=== PATIENT | male | born 1925 | race Hispanic/Latino ===

== ENCOUNTER 2017-03-19 18:41 | Emergency (ER) | payer MEDICARE, BC ==
[2017-03-19 18:52] VITALS: TEMP 97.9; BMI 29.2
--- NOTE | 2017-03-19 19:53 | ED PDOC ---
Arrival/HPI - General Chief Complaint: Lower Extremity Problem/Injury Time Seen by Provider: 03/19/17 18:52 Historian: Patient - History of Present Illness Narrative History of Present Illness (Text): 03/19/17 19:44 89yo male with history of hypertension, Asthma, Colon CA present to ED with complaint of intermittent right sided lower back pain that radiates to the lower leg since yesterday. states pain is worse when he sleeps or with prolonged sitting. He did not take any medication for the pain. He denies trauma , exertion, ripping/tearing upper back pain, abdominal pain, focal weakness, urinary/fecal incontinence, any other complaint. Past Medical History - Provider Review Nursing Documentation Reviewed: Yes - Cardiac Hx Pacemaker: No - Neurological Hx Paralysis: No - Hematological/Oncological Hx Blood Transfusions: No Hx Blood Transfusion Reaction: No - Musculoskeletal/Rheumatological Hx Musculoskeletal Disorders: No - Psychiatric Hx Emotional Abuse: No Hx Physical Abuse: No Hx Substance Use: No - Surgical History Hx Coronary Artery Bypass Graft: Yes - Anesthesia Hx Anesthesia Reactions: No Hx Malignant Hyperthermia: No - Suicidal Assessment Feels Threatened In Home Enviroment: No Family/Social History - Physician Review Nursing Documentation Reviewed: Yes Family/Social History: Unknown Family HX Smoking Status: Never Smoked Hx Alcohol Use: No Hx Substance Use: No Allergies/Home Meds Allergies/Adverse Reactions: Allergies No Known Allergies Allergy (Verified 03/19/17 18:52) Home Medications: Home Meds Medication Instructions Recorded Confirmed Digoxin [Lanoxin] 0.25 mg PO QAM 01/08/13 03/19/17 Fluticasone/Salmeterol [Advair 1 puff IH BID 01/08/13 03/19/17 Diskus 250/50] Desloratadine [Clarinex] 5 mg PO DAILY 03/19/17 03/19/17 Fosinopril Sodium [Fosinopril 25 mg PO DAILY 03/19/17 03/19/17 Sodium] Furosemide [Lasix] 40 mg PO DAILY 03/19/17 03/19/17 Metoprolol Tartrate [Lopressor] 25 mg PO BID 03/19/17 03/19/17 Mv,Min10/Folic Acid/D3/Ala/Lut 1 cap PO DAILY 03/19/17 03/19/17 [Strovite One Caplet] Omeprazole [Omeprazole] 40 mg PO DAILY 03/19/17 03/19/17 Potassium Chloride [Klor-Con M10] 10 meq PO DAILY 03/19/17 03/19/17 Rosuvastatin Calcium [Crestor] 5 mg PO DAILY 03/19/17 03/19/17 Review of Systems - Physician Review All systems were reviewed & negative as marked: Yes - Review of Systems Constitutional: Normal Eyes: Normal ENT: Normal Respiratory: Normal Cardiovascular: Normal Gastrointestinal: Normal Genitourinary Male: Normal Musculoskeletal: Back Pain Skin: Normal Neurological: Normal Endocrine: Normal Hemo/Lymphatic: Normal Psychiatric: Normal Physical Exam Vital Signs Reviewed: Yes Vital Signs Temp Pulse Resp BP Pulse Ox 03/19/17 21:00 72 16 126/70 98 03/19/17 18:49 97.9 F 79 18 122/66 95 Temperature: Afebrile Blood Pressure: Normal Pulse: Regular Respiratory Rate: Normal Appearance: Positive for: Well-Appearing, Non-Toxic, Comfortable Pain Distress: None Mental Status: Positive for: Alert and Oriented X 3 - Systems Exam Head: Present: Atraumatic, Normocephalic Pupils: Present: PERRL Extroacular Muscles: Present: EOMI Conjunctiva: Present: Normal Mouth: Present: Moist Mucous Membranes Neck: Present: Normal Range of Motion Respiratory/Chest: Present: Clear to Auscultation, Good Air Exchange. No: Respiratory Distress, Accessory Muscle Use Cardiovascular: Present: Regular Rate and Rhythm, Normal S1, S2. No: Murmurs Abdomen: Present: Normal Bowel Sounds. No: Tenderness, Distention, Peritoneal Signs Back: Present: Normal Inspection, Paraspinal Tenderness (Right sided). No: Midline Tenderness, Pain with Leg Raise Upper Extremity: Present: Normal Inspection. No: Cyanosis, Edema Lower Extremity: Present: Normal Inspection. No: Edema Neurological: Present: GCS=15, CN II-XII Intact, Speech Normal Skin: Present: Warm, Dry, Normal Color. No: Rashes Psychiatric: Present: Alert, Oriented x 3, Normal Insight, Normal Concentration Medical Decision Making ED Course and Treatment: 03/19/17 20:47 Vertebrae: Residual within normal limits. No evidence of acute compression fracture. Discs/spinal canal/neural foramina: L1-L2: No evidence of disc protrusion or extrusion. No evidence of significant disc bulge. No canal stenosis. No neuroforaminal stenosis. L2-L3 : Degenerative disc disease with loss of disc height and degenerative vacuum phenomena. Small anterior osteophytosis. Up to 4 mm right lateral and paracentral discal. No disc protrusion or extrusion. No significant neuroforaminal narrowing. L3-L4: Mild diffuse disc bulge measuring up to 2-3 mm. No evidence of disc protrusion or extrusion. No significant canal stenosis. No neural foraminal narrowing. L4-L5: Bilateral facet arthropathy. 3 mm osteophytosis and bulge. Moderate left and mild right neural foraminal narrowing. No disc extrusion or extrusion. Mild canal stenosis. L5-S1 : Degenerative fusion of the disc space. No disc protrusion or extrusion. No canal stenosis. Soft tissues: Unremarkable. IMPRESSION: Degenerative disc disease throughout lumbar spine as described above. Moderate left and mild right neural foraminal narrowing at L4-L5 secondary to mild diffuse bulge and bilateral facet arthropathy. 03/19/17 22 Per US tech Doppler was negative for DVT b/ll Result was DW the pt and the family. Rx of Tramadol given. Referred to Ortho. He was ambulatory and neurological intact in ED. - RAD Interpretation Radiology Orders: 03/19/17 19:16 LUMBAR SPINE W/O CONTRAST [CT] Stat 03/19/17 19:17 DUPLEX LOWER EXTRM VEIN BILAT [US] Stat - Medication Orders Current Medication Orders: Discontinued Medications Tramadol HCl (Ultram) 50 mg PO STAT STA Stop: 03/19/17 19:44 Last Admin: 03/19/17 19:57 Dose: 50 mg Disposition/Present on Arrival - Present on Arrival Any Indicators Present on Arrival: No History of DVT/PE: No History of Uncontrolled Diabetes: No Urinary Catheter: No History of Decub. Ulcer: No History Surgical Site Infection Following: None - Disposition Have Diagnosis and Disposition been Completed?: Yes Diagnosis: Back pain, Sciatica Disposition: HOME/ ROUTINE Disposition Time: 20:50 Patient Plan: Discharge Condition: STABLE Discharge Instructions (ExitCare): Sciatica (ED), Back Pain (ED) Additional Instructions: Follow up with your Doctor/orthopedist Return to ED for any new or worsening symptoms Prescriptions: traMADol [Ultram] 50 mg PO TID #12 tab Referrals: Ishaan Diehl MD [Primary Care Provider] - Follow up with primary Hood Covarrubias MD [Staff Provider] - Follow up with primary
[2017-03-19 21:01] VITALS: BP 126/70; PULSE 72; RESP 16; O2SAT 98
--- NOTE | 2017-03-20 07:59 | CT ---
PROCEDURE: CT Lumbar Spine without contrast HISTORY: Back pain COMPARISON: None. TECHNIQUE: Axial computed tomography images were obtained of the lumbar spine without the use of intravenous contrast. Coronal and sagittal reformatted images were created and reviewed. Radiation dose: Total exam DLP = 696.60 mGy-cm. This CT exam was performed using one or more of the following dose reduction techniques: Automated exposure control, adjustment of the mA and/or kV according to patient size, and/or use of iterative reconstruction technique. FINDINGS: VERTEBRAE: Pain there is normal alignment of the lumbar vertebral bodies. Lumbar lordosis is maintained. Vertebral bodies are normal height. There is diffuse bone demineralization. There is no acute fracture or bone destruction. There is no spondylolysis or spondylolisthesis. DISCS/SPINAL CANAL/NEURAL FORAMINA: L1-2: No large disc herniation, neural foraminal or spinal canal stenosis. L2-3: Diffuse posterior disc bulge and superimposed right foraminal and far lateral disc protrusions abut the exiting right L2 nerve root. No central spinal canal stenosis. Mild left and moderately right neural foraminal stenosis. L3-4: Diffuse posterior disc bulge, mild ligamentum flavum infolding and mild bilateral facet arthropathy result in moderate bilateral neural foraminal stenosis without central spinal canal stenosis. L4-5: Diffuse posterior disc bulge in conjunction with moderate ligamentum flavum infolding results in moderate spinal canal stenosis. Moderate bilateral facet arthropathy contributes to severe neural foraminal stenosis. L5-S1: No large disc herniation, neural foraminal or spinal canal stenosis. PARASPINAL SOFT TISSUES: The paraspinous soft tissues are normal. There are simple cysts in both kidneys. OTHER FINDINGS: None IMPRESSION: 1. No acute fracture, spondylolysis or spondylolisthesis. 2. Multilevel degenerative disc disease, worse at L4-5 with moderate spinal canal stenosis and severe bilateral neural foraminal stenosis. A preliminary report was provided by [employer] services.
--- NOTE | 2017-03-20 08:57 | US ---
HISTORY: Leg pain and swelling. Evaluate for DVT PHYSICIAN(S): Wilman Sampson MD. TECHNIQUE: Duplex sonography and color-flow Doppler with graded compression were used to evaluate the deep venous systems of both lower extremities. FINDINGS: The visualized deep venous systems of both lower extremities are sonographically normal and compressible. Normal wave forms and augmentation are seen. There is no sonographic evidence for deep venous thrombosis in the visualized segments of both lower extremities. IMPRESSION: No sonographic evidence for deep venous thrombosis in the visualized segments of both lower extremities.
== END 2017-03-19 21:09 | disposition home or self-care (01) ==
LOC: ED 18:41
DX: M54.40 Lumbago with sciatica, unspecified side (principal)

== ENCOUNTER 2017-08-01 07:47 | Day surgery (SDC) | payer MEDICARE, BC ==
[2017-08-01] MEDS ORDERED: Liquid Adhesive TOP ONE (10:05)
[2017-08-01] MEDS ORDERED: cefTRIAXone (Rocephin) 1 gm Inj ONE (10:05)
[2017-08-01] MEDS ORDERED: Propofol 10 mg/ml Inj (20 ML) ONE (10:18)
[2017-08-01] MEDS ORDERED: Midazolam 2 MG/2 ML VIAL ONE (10:19)
[2017-08-01] MEDS ORDERED: ePHEDrine 50 mg/ml Inj ONE (10:39)
[2017-08-01] MEDS ORDERED: Lactated Ringer's 1,000 ML IV SCH (11:15)
--- NOTE | 2017-08-01 12:01 | CP.PCM.HP ---
History of Present Illness - History of Present Illness History of Present Illness: 89 M with pmh of CABG (15 years ago), COPD, HLD, Bladder ca (2013) is seen in the recovery room following having a Cystoscopy and TUR of bladder. Pt had a similar procedure done in 2014. Pt denies any complaints at this time other than the need and urge to urinate (pt has catheter in place). No complaints at this time. He denies any rodriguez, dizziness, f/c, sob, cp, n/v/d or abdominal pain. PMH: CABG, COPD, HLD, Bladder ca PSH: CABG (15 years ago), Cystoscopy with excision and fulguration of bladder and bladder biopsy (2013) Med: refer to [facility] ALL: denies FH: denies SH: lives at home with his son. 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 Admits to smoking 20 years but quit many years ago. Social drinker, denies any drugs. Present on Admission - Present on Admission Any Indicators Present on Admission: No Review of Systems - Review of Systems All systems: reviewed and no additional remarkable complaints except (HPI) Past Patient History - Past Social History Smoking Status: Never Smoked - CARDIAC Hx Pacemaker: No - NEUROLOGICAL Hx Paralysis: No - HEMATOLOGICAL/ONCOLOGICAL Hx Blood Transfusions: No Hx Blood Transfusion Reaction: No - MUSCULOSKELETAL/RHEUMATOLOGICAL Hx Musculoskeletal Disorders: No - PSYCHIATRIC Hx Emotional Abuse: No Hx Physical Abuse: No Hx Substance Use: No - SURGICAL HISTORY Hx Surgeries: Yes - ANESTHESIA Hx Anesthesia Reactions: No Hx Malignant Hyperthermia: No Meds Allergies/Adverse Reactions: Allergies Allergy/AdvReac Type Severity Reaction Status Date / Time No Known Allergies Allergy Verified 03/19/17 18:52 Physical Exam - Constitutional Appears: No Acute Distress - Head Exam Head Exam: ATRAUMATIC, NORMOCEPHALIC - Eye Exam Eye Exam: EOMI, PERRL - ENT Exam ENT Exam: Mucous Membranes Moist - Neck Exam Neck exam: Positive for: Normal Inspection - Respiratory Exam Respiratory Exam: Clear to Auscultation Bilateral. absent: Rales, Rhonchi, Wheezes - Cardiovascular Exam Cardiovascular Exam: REGULAR RHYTHM, RRR, +S1, +S2 - GI/Abdominal Exam GI & Abdominal Exam: Normal Bowel Sounds, Soft. absent: Tenderness - Exam Additional comments: Catheter in place - Extremities Exam Extremities exam: Negative for: calf tenderness, pedal edema - Neurological Exam Neurological exam: Alert, Oriented x3 - Psychiatric Exam Psychiatric exam: Normal Affect, Normal Mood - Skin Skin Exam: Dry, Intact, Warm Results - Vital Signs Recent Vital Signs: Last Vital Signs Temp 98.6 F 08/01/17 11:40 Pulse 68 08/01/17 11:40 Resp 14 08/01/17 11:40 BP 141/77 08/01/17 11:40 Pulse Ox 98 08/01/17 11:40 Assessment & Plan - Assessment and Plan (Free Text) Assessment: 89 M with pmh of CABG (15 years ago), COPD, HLD, Bladder ca (2013) is seen in the recovery room following having a Cystoscopy and TUR of bladder POD 0. 1. S/p Cystoscopy and TUR of bladder POD 0 - Urology consulted - will follow up recs - Pain control - Urinary catheter in place - Cont home Prednisone 5mg PO daily - LR @ 75 - Cont Zofran for nausea - AM labs 2. Hx of CAD and CABG - Cont home Digoxin, Lasix, Metoprolol, Lipitor 3. COPD - Cont home Brovana and pulmicort - cont to monitor 4. HLD - Cont home lipitor 5. GI/DVT ppx Case and plan was reviewed and discussed in detail with Dr Diehl.
[2017-08-01 14:39] LABS: CHOLESTEROL 129 mg/dL (130-200)
[2017-08-01 14:53] VITALS: BMI 25.7
[2017-08-01] MEDS ORDERED: Pneumococcal 23-Valent Vaccine IM ONE (14:53)
[2017-08-01] MEDS ORDERED: Influenza Vaccine 60 mcg/0.5 mL SYR (4YR UP) IM ONE (14:53)
[2017-08-01] MEDS ORDERED: Fluticasone-Salmeterol 250-50mcg Diskus IH SCH (18:00)
[2017-08-01 18:06] VITALS: RESP 20
--- NOTE | 2017-08-01 18:37 | OP ---
PROCEDURE DATE: 08/01/2017 PREOPERATIVE DIAGNOSIS: Bladder cancer. POSTOPERATIVE DIAGNOSIS: Bladder cancer, multifocal, greater than 5 cm. PROCEDURE: Cystoscopy, transurethral resection and fulguration of bladder tumor. SURGEON: Alexandru Montoya MD ANESTHESIA: LMA. DESCRIPTION OF OPERATION: After adequate LMA anesthesia was given, the patient was placed in lithotomy, prepped and draped in usual manner. A 22-Qatari cystourethroscope was initially introduced under direct vision. The anterior urethra was normal. Prostatic urethra showed minimal prostatic occlusion. There was some papillary tumor in the prostate urethra. Inspection of the bladder showed multifocal tumor on the left lateral wall, the floor, the trigone and the right lateral wall. Some of it appeared low grade and noninvasive. On the left lateral wall, it appeared and broad based. I fulgurated and/or resected the tumor in its entirety. I could see the left ureteral orifice and the right ureteral orifice upon completion with clear reflux. There was no evidence of any bleeding. There was no visible remaining tumor. The resected portion was evacuated. Reinspection of the bladder again showed no bleeding, no further tissue in the bladder. The resectoscope was removed. The patient then had a 20-Qatari three-way Conrad catheter inserted [id number] and urine was crystal clear. He was awakened and brought to recovery room in good condition. Alexandru Montoya MD
[2017-08-01] MEDS: Arformoterol 15 mcg/2 ml Inh Sol IH SCH (20:37)
[2017-08-01] MEDS: Budesonide 0.5 mg/2 ml Inhal Susp UD IH SCH (20:38)
[2017-08-02 06:09] LABS: BASO # 0.03 K/mm3 (0.0-2.0); BASO % 0.3 % (0.0-3.0); EOS # 0.4 (0.0-0.7); EOS % 4.6 % (1.5-5.0); GRAN # 6.39 (1.4-6.5); GRAN % 67.8 % (50.0-68.0); HEMATOCRIT 35.2 % (42.0-52.0); LYMPH # 1.9 (1.2-3.4); MEAN CELL VOLUME 98.9 fl (80.0-105.0); MEAN CORPUSCULAR HGB CONC 32.4 g/dl (31.0-37.0); MEAN PLATELET VOLUME 10.3 fl (7.0-11.0); MONO # 0.7 (0.1-0.6); MONO % 7.3 % (1.0-6.0); RED CELL DISTRIBUTION WIDTH 14.3 % (11.5-14.5); WHITE BLOOD COUNT 9.4 10^3/ul (4.5-11.0)
[2017-08-02] MEDS: Budesonide 0.5 mg/2 ml Inhal Susp UD IH SCH (07:16)
[2017-08-02] MEDS: Arformoterol 15 mcg/2 ml Inh Sol IH SCH (07:16)
[2017-08-02 07:28] LABS: ALB/GLOB RATIO 1.5 (1.1-1.8); ALKALINE PHOSPHATASE 52 U/L (38-126); ALT/SGPT 27 U/L (7-56); AST/SGOT 19 U/L (17-59); BILIRUBIN,TOTAL 0.9 mg/dL (0.2-1.3); BLOOD UREA NITROGEN 27 mg/dL (7-21); CALCIUM 8.7 mg/dL (8.4-10.5); CARBON DIOXIDE 29 mmol/L (21-33); CHLORIDE 106 mmol/L (98-107); GFR AFRICAN-AMERICAN > 60; GLUCOSE,RANDOM 88 mg/dL (70-110); POTASSIUM 4.7 mmol/L (3.6-5.0); SODIUM 141 mmol/L (132-148); TOTAL PROTEIN 6.1 g/dL (5.8-8.3)
[2017-08-02 08:53] VITALS: BP 131/69; TEMP 97.7; O2SAT 94
[2017-08-02 09:44] VITALS: PULSE 745; PULSE 75
[2017-08-02] MEDS ORDERED: Potassium Chloride 10 mEq ER Tab PO SCH (10:00)
[2017-08-02] MEDS ORDERED: Pantoprazole 40 mg EC Tab PO SCH (10:00)
[2017-08-02] MEDS ORDERED: Digoxin 250 mcg (0.25 mg) Tab PO SCH (10:00)
[2017-08-02] MEDS ORDERED: FOSINOPRIL PO SCH (10:00)
--- NOTE | 2017-08-02 16:05 | CP.PCM.DIS ---
Provider - Provider Date of Admission: 08/01/17 Attending physician: Alexandru Montoya MD Primary care physician: Fazal Consults: Urology Time Spent in preparation of Discharge (in minutes): 40 Diagnosis - Discharge Diagnosis (1) Bladder neoplasm Status: Acute Hospital Course - Lab Results Lab Results: Most Recent Lab Values WBC 9.4 10^3/ul (4.5-11.0) 08/02/17 05:30 RBC 3.56 10^6/uL (3.5-6.1) 08/02/17 05:30 Hgb 11.4 g/dL (14.0-18.0) L 08/02/17 05:30 Hct 35.2 % (42.0-52.0) L 08/02/17 05:30 MCV 98.9 fl (80.0-105.0) 08/02/17 05:30 MCH 32.0 pg (25.0-35.0) 08/02/17 05:30 MCHC 32.4 g/dl (31.0-37.0) 08/02/17 05:30 RDW 14.3 % (11.5-14.5) 08/02/17 05:30 Plt Count 129 10^3/uL (120.0-450.0) 08/02/17 05:30 MPV 10.3 fl (7.0-11.0) 08/02/17 05:30 Gran % 67.8 % (50.0-68.0) 08/02/17 05:30 Lymph % (Auto) 20.0 % (22.0-35.0) L 08/02/17 05:30 Sargent % (Auto) 7.3 % (1.0-6.0) H 08/02/17 05:30 Eos % (Auto) 4.6 % (1.5-5.0) 08/02/17 05:30 Baso % (Auto) 0.3 % (0.0-3.0) 08/02/17 05:30 Gran # 6.39 (1.4-6.5) 08/02/17 05:30 Lymph # 1.9 (1.2-3.4) 08/02/17 05:30 Sargent # 0.7 (0.1-0.6) H 08/02/17 05:30 Eos # 0.4 (0.0-0.7) 08/02/17 05:30 Baso # 0.03 K/mm3 (0.0-2.0) 08/02/17 05:30 Sodium 141 mmol/L (132-148) 08/02/17 05:30 Potassium 4.7 mmol/L (3.6-5.0) 08/02/17 05:30 Chloride 106 mmol/L (98-107) 08/02/17 05:30 Carbon Dioxide 29 mmol/L (21-33) 08/02/17 05:30 Anion Gap 11 (10-20) 08/02/17 05:30 BUN 27 mg/dL (7-21) H 08/02/17 05:30 Creatinine 1.3 mg/dl (0.8-1.5) 08/02/17 05:30 Est GFR ( Amer) > 60 08/02/17 05:30 Est GFR (Non-Af Amer) 52 08/02/17 05:30 Random Glucose 88 mg/dL (70-110) 08/02/17 05:30 Calcium 8.7 mg/dL (8.4-10.5) 08/02/17 05:30 Total Bilirubin 0.9 mg/dL (0.2-1.3) 08/02/17 05:30 AST 19 U/L (17-59) 08/02/17 05:30 ALT 27 U/L (7-56) 08/02/17 05:30 Alkaline Phosphatase 52 U/L (38-126) 08/02/17 05:30 Total Protein 6.1 g/dL (5.8-8.3) 08/02/17 05:30 Albumin 3.6 g/dL (3.0-4.8) 08/02/17 05:30 Globulin 2.4 gm/dL 08/02/17 05:30 Albumin/Globulin Ratio 1.5 (1.1-1.8) 08/02/17 05:30 Triglycerides 87 mg/dL (35-160) 08/01/17 14:20 Cholesterol 129 mg/dL (130-200) L 08/01/17 14:20 LDL Cholesterol Direct 87 mg/dL (0-129) 08/01/17 14:20 HDL Cholesterol 33 mg/dL (29-60) 08/01/17 14:20 TSH 3rd Generation 2.65 mIU/mL (0.46-4.68) 08/01/17 14:20 - Hospital Course Hospital Course: 89 M with pmh of CABG (15 years ago), COPD, HLD, Bladder ca (2013) is seen in the recovery room following having a Cystoscopy and TUR of bladder. Procedure went well with no complications. Pt had no complaints following the procedure. Urinary catheter in place. Today pt states that he is doing well. No acute events overnight. Spoke to urology service Dr Cotto which recommended to discharge today and follow up in office tomorrow for removal of urinary cath. Pt has all meds at home. Pt denies any rodriguez, dizziness, fever, chills, sob, chest pain, palpitations, abd pain, n/v/d. Diagnosis: Cystoscopy and TUR of bladder / Bladder neoplasm / CABG COPD / HLD Discharge Exam - Head Exam Head Exam: ATRAUMATIC, NORMOCEPHALIC - Eye Exam Eye Exam: EOMI, PERRL Pupil Exam: NORMAL ACCOMODATION - Respiratory Exam Respiratory Exam: Clear to PA & Lateral. absent: Rales, Wheezes, NORMAL BREATHING PATTERN - Cardiovascular Exam Cardiovascular Exam: REGULAR RHYTHM, +S1, +S2 - GI/Abdominal Exam GI & Abdominal Exam: Normal Bowel Sounds, Soft. absent: Tenderness - Neurological Exam Neurological exam: Alert, Oriented x3 - Psychiatric Exam Psychiatric exam: Normal Affect, Normal Mood - Skin Skin Exam: Dry, Intact, Warm Discharge Plan - Follow Up Plan Condition: IMPROVED Disposition: HOME/ ROUTINE Patient education suggested?: Yes Instructions: Pneumococcal Vaccine for Adults (DC), Transurethral Prostatectomy (DC), Influenza Vaccine (DC), Urinary Leg Bag (GEN) Additional Instructions: Follow up with Dr Montoya tomorrow at 9:15am. Follow up with Dr Diehl with in the next 3-5 days. Take your meds as prescribed.
== END 2017-08-02 14:48 | disposition home or self-care (01) ==
LOC: SDS 07:47 → 5RNO 12:57 → SDS 08-02 14:48
PROVIDERS: ATTEND Urology
DX: C67.8 Malignant neoplasm of overlapping sites of bladder (principal); E78.5 Hyperlipidemia, unspecified; I25.10 Atherosclerotic heart disease of native coronary artery without angina pectoris; J44.9 Chronic obstructive pulmonary disease, unspecified; Z95.1 Presence of aortocoronary bypass graft; Z85.51 Personal history of malignant neoplasm of bladder
CPT/HCPCS: 36415; 52234; 80061; 84443; 88307; 94640; J0696; J2001; J2250; J2405; J2704; J3010; J7120